=== PATIENT | female | born 1995 | race American Indian/Alaskan Native ===

== ENCOUNTER 2017-05-11 18:07 | Emergency (ER) | payer SELFPAY ==
[2017-05-11 19:32] LABS: Hematocrit 36.5 % (30.3-42.9); Hemoglobin 12.3 gm/dl (10.1-14.3); Mean Corpuscular HGB Conc 34 % (30-34); Mean Corpuscular Hemoglobin 28 pg (28-32); Mean Corpuscular Volume 82 fl (79-97); Platelet Count 301 K/mm3 (140-440); Red Blood Count 4.46 M/mm3 (3.65-5.03)
[2017-05-11 19:35] LABS: Anion Gap 18 mmol/L; BUN/Creatinine Ratio 11.42; Blood Urea Nitrogen 8 mg/dL (7-17); Carbon Dioxide 23 mmol/L (22-30); Chloride 103.2 mmol/L (98-107); Glucose 82 mg/dL (65-100); Potassium 3.9 mmol/L (3.6-5.0); Sodium 140 mmol/L (137-145)
[2017-05-11 21:31] LABS: Bilirubin,Urine NEG (Negative); Blood,Urine LG (Negative); Ketones,Urine TR mg/dL (Negative); Leukocyte Esterase,Urine NEG (Negative); Mucus,Urine FEW /HPF; Nitrite,Urine NEG (Negative); Protein,Urine <15 mg/dL mg/dL (Negative)
--- NOTE | 2017-05-11 23:51 | Ultrasound Report ---
FINAL REPORT PROCEDURE: US OB TRANSVAGINAL TECHNIQUE: Real-time transabdominal and transvaginal sonography of the uterus, placenta, amniotic fluid, adnexa, and fetus was performed with image documentation. Measurements were obtained to determine age/size. M-mode Doppler was used to document heartbeat. CPT 16519 and 17075 HISTORY: , bleeding COMPARISON: No prior studies are available for comparison. FINDINGS: The uterus measures 10.4 x 4.7 x 6 centimeters. The endometrial pattern measures 14 millimeters. There is no evidence of a gestational sac on this study. Both ovaries have normal size. There is a solid-appearing mass on the right ovary measuring 23 millimeters. No fluid in the lower pelvis. The findings may indicate multiple etiologies which includes early and failure. Ectopic is not completely excluded on the basis of this study. Followup examinations including serial beta HCG levels and repeat ultrasound in approximately 14 days would be appropriate. IMPRESSION: Normal uterus and left ovary. Slightly thickened endometrial pattern. Solid small mass on the right ovary measures 23 millimeters and is most consistent with a complicated cyst. The evaluation may indicate multiple etiologies which includes early , failure and ectopic which is not excluded on the basis of this single examination. Followup studies are recommended as described.
--- NOTE | 2017-05-11 23:52 | Ultrasound Report ---
FINAL REPORT PROCEDURE: Obstetrical ultrasound, transabdominal and transvaginal TECHNIQUE: Real-time transabdominal and transvaginal sonography of the uterus, placenta, amniotic fluid, adnexa, and fetus was performed with image documentation. Measurements were obtained to determine age/size. M-mode Doppler was used to document heartbeat. CPT 19653 and 25832 HISTORY: , bleeding COMPARISON: No prior studies are available for comparison. FINDINGS: The uterus measures 10.4 x 4.7 x 6 centimeters. The endometrial pattern measures 14 millimeters. There is no evidence of a gestational sac on this study. Both ovaries have normal size. There is a solid-appearing mass on the right ovary measuring 23 millimeters. No fluid in the lower pelvis. The findings may indicate multiple etiologies which includes early and failure. Ectopic is not completely excluded on the basis of this study. Followup examinations including serial beta HCG levels and repeat ultrasound in approximately 14 days would be appropriate. IMPRESSION: Normal uterus and left ovary. Slightly thickened endometrial pattern. Solid small mass on the right ovary measures 23 millimeters and is most consistent with a complicated cyst. The evaluation may indicate multiple etiologies which includes early , failure and ectopic which is not excluded on the basis of this single examination. Followup studies are recommended as described.
--- NOTE | 2017-05-12 00:13 | Emergency Department Report ---
HPI - General Chief Complaint: Vaginal Bleeding Time Seen by Provider: 05/12/17 00:11 - HPI HPI: Patient came to ED with vaginal bleeding. She is 21 years old states on April 20 she took the morning-after pill, but later was found to be at an outside hospital. She complained of cramping, vaginal bleeding consistent with a menstrual cycle for 3 days. ED Past Medical Hx - Past Medical History Previous Medical History?: No - Social History Smoking Status: Current Some Day Smoker Substance Use Type: Alcohol ED Review of Systems ROS: Stated complaint: 4 WKS PREG/BLEEDING Other details as noted in HPI Comment: All other systems reviewed and negative Gastrointestinal: as per HPI Genitourinary: abnormal menses Physical Exam - Physical Exam Vital Signs: Vital Signs 05/11/17 18:34 Temperature 98.7 F Pulse Rate 80 Respiratory 18 Rate Blood Pressure 148/78 O2 Sat by Pulse 100 Oximetry Physical Exam: GENERAL: The patient is well-developed well-nourished [] HEENT: Normocephalic. Atraumatic. Extraocular motions are intact. Patient has moist mucous membranes. NECK: Supple. No meningitic signs are noted. There is no adenopathy noted. CHEST/LUNGS: Clear to auscultation. There is no respiratory distress noted. HEART/CARDIOVASCULAR: Regular. There is no tachycardia. There is no gallop rub or murmur. ABDOMEN: Abdomen is soft, nontender. Patient has normal bowel sounds. There is no abdominal distention. SKIN: There is no rash. There is no edema. There is no diaphoresis. NEURO: The patient is awake, alert, and oriented. The patient is cooperative. The patient has no focal neurologic deficits. The patient has normal speech. Cranial nerves II through XII grossly intact, no drift. Moves all extremities well MUSCULOSKELETAL: There is no evidence of acute injury. ED Course Vital Signs 05/11/17 18:34 Temperature 98.7 F Pulse Rate 80 Respiratory 18 Rate Blood Pressure 148/78 O2 Sat by Pulse 100 Oximetry - Reevaluation(s) Reevaluation #1: 05/12/17 00:51 Patient advising details about ultrasound and blood work findings. Advised to return to ED in 2 days for recheck of hCG, and ultrasound. Patient does not have an IC DESIGN MANAGER due to lack of insurance. Return to ED if pain returns. I discharged patient did not have any pain, appeared comfortable. ED Medical Decision Making - Lab Data Result diagrams: 05/11/17 19:02 05/11/17 19:02 Critical care attestation.: If time is entered above; I have spent that time in minutes in the direct care of this critically ill patient, excluding procedure time. ED Disposition Clinical Impression: Vaginal bleeding in Disposition: DC-01 TO HOME OR SELFCARE Is pt being admited?: No Does the pt Need Aspirin: No Condition: Stable Referrals: PRIMARY CARE, [Primary Care Provider] - 3-5 Days
[2017-05-12 00:15] VITALS: BP 153/73
== END 2017-05-12 01:43 | disposition home or self-care (01) ==
LOC: ED 18:07
DX: O20.9 Hemorrhage in early pregnancy, unspecified (principal); O99.331 Smoking (tobacco) complicating pregnancy, first trimester; Z3A.01 Less than 8 weeks gestation of pregnancy
CPT/HCPCS: 36415; 76801; 76817; 80048; 81001; 84702; 85027; 86900; 86901

== ENCOUNTER 2018-03-15 09:37 | Emergency (ER) | payer MEDICAID ==
[2018-03-15 09:45] VITALS: BP 139/75
--- NOTE | 2018-03-15 10:20 | Emergency Department Report ---
ED Female HPI - General Chief complaint: Abdominal Pain Stated complaint: ABD PAIN/DIARRHEA/DISCHARGE/NAUSEA Time Seen by Provider: 03/15/18 10:11 Source: patient Mode of arrival: Ambulatory Limitations: No Limitations - History of Present Illness Initial comments: Ms Arrieta is a 22 year-old woman without PMH who presents with abdominal pain, dysuria, vaginal discharge. 1 week. No back pain. Lower abdominal pain without radiation. currently on her cycle. No fever. No cough. Endorses diarrhea earlier this week. Some nausea and vomiting. No vomiting today. No other complaints. MD Complaint: vaginal discharge - Related Data Allergies Allergy/AdvReac Type Severity Reaction Status Date / Time No Known Allergies Allergy Unverified 05/11/17 18:40 ED Review of Systems ROS: Stated complaint: ABD PAIN/DIARRHEA/DISCHARGE/NAUSEA Other details as noted in HPI Comment: All other systems reviewed and negative ED Past Medical Hx - Past Medical History Previous Medical History?: No - Surgical History Past Surgical History?: Yes Additional Surgical History: ECTOPIC PREGNANY- LEFT FALLOPIAN TUBE REMOVED. C- SECTION X 1 - Social History Smoking Status: Never Smoker Substance Use Type: Alcohol, Marijuana ED Physical Exam - General Limitations: No Limitations General appearance: alert, in no apparent distress - Head Head exam: Present: atraumatic, normocephalic - Eye Eye exam: Present: normal appearance - ENT ENT exam: Present: normal exam, mucous membranes dry - Cardiovascular Cardiovascular Exam: Present: regular rate, normal rhythm - GI/Abdominal GI/Abdominal exam: Present: soft, tenderness, other (mild suprapubic ttp). Absent: distended, guarding, rebound - External exam: Present: normal external exam. Absent: erythema, swelling, lesions Speculum exam: Present: normal speculum exam, vaginal discharge. Absent: erythema, cervical discharge, vaginal bleeding, foreign body Bi-manual exam: Present: normal bi-manual exam. Absent: cervical motion tendernes, adnexal tenderness, adnexal mass - Back Exam Back exam: Present: normal inspection. Absent: tenderness, CVA tenderness (R), CVA tenderness (L) - Neurological Exam Neurological exam: Present: alert, altered, normal gait - Psychiatric Psychiatric exam: Present: normal affect, normal mood - Skin Skin exam: Present: warm, dry, intact ED Course Vital Signs 03/15/18 03/15/18 09:41 10:14 Temperature 98.9 F Pulse Rate 81 Respiratory 16 16 Rate Blood Pressure 139/75 O2 Sat by Pulse 100 Oximetry ED Medical Decision Making - Lab Data Lab Results 03/15/18 Range/Units Unknown Urine Color Yellow (Yellow) Urine Turbidity Clear (Clear) Urine pH 5.0 (5.0-7.0) Ur Specific [place] 1.017 (1.003-1.030) Urine Protein <15 mg/dl (Negative) mg/dL Urine Glucose (UA) Neg (Negative) mg/dL Urine Ketones Neg (Negative) mg/dL Urine Blood Neg (Negative) Urine Nitrite Neg (Negative) Urine Bilirubin Neg (Negative) Urine Urobilinogen < 2.0 (<2.0) mg/dL Ur Leukocyte Esterase Neg (Negative) Urine WBC (Auto) 1.0 (0.0-6.0) /HPF Urine RBC (Auto) 4.0 (0.0-6.0) /HPF U Epithel Cells (Auto) 2.0 (0-13.0) /HPF Urine Bacteria (Auto) 1+ (Negative) /HPF Urine Mucus Few /HPF - Radiology Data Radiology results: report reviewed IMPRESSION: An early intrauterine gestational sac is identified but no pole or heart tones are identified at this time. This probably represents a very early normal . Followup is recommended. 4.9 cm right ovarian cyst. - Medical Decision Making ms Arrieta is a 22 year-old woman who presents with abdominal pain, cramping. Lower abdominal cramping. Also with diarrhea. At this point, she also alerts me to a positive home test. ordering serum HCG instead of urine. Pelvic exam with scant white vaginal discharge. No adnexal ttp. Suspect her symptoms are from diarrhea and cramping, BV, UTI or . UA clean. Wet prep positive for clue cells. Reported hx of unilateral fallopian tube removal. HCG positive. Quant pending. Hx of ectopic. TVUS pending. TVUS shows early IUP. HCG 1999. OB f/u. Flagyl 500mg BID x 7 days for BV. Category B in . DC to home. Given care instructions, return precautions. Critical care attestation.: If time is entered above; I have spent that time in minutes in the direct care of this critically ill patient, excluding procedure time. ED Disposition Clinical Impression: Bacterial vaginosis Qualifiers: Weeks of gestation: less than 8 weeks Qualified Code(s): Z3A.01 - Less than 8 weeks gestation of Disposition: DC-01 TO HOME OR SELFCARE Is pt being admited?: No Condition: Stable Instructions: Abdominal Pain (ED), Bacterial Vaginosis (ED) Referrals: FAISAL DUMONT MD [Staff Physician] - 3-5 Days (Call for follow-up appointment ) Forms: STI Treatment and Prevention
[2018-03-15 10:46] LABS: Bacteria,Urine 1+ /HPF (Negative); Bilirubin,Urine NEG (Negative); Blood,Urine NEG (Negative); Color,Urine Yellow (Yellow); Mucus,Urine FEW /HPF; Protein,Urine <15 mg/dL mg/dL (Negative); Urobilinogen,Urine < 2.0 mg/dL (<2.0)
--- NOTE | 2018-03-15 13:34 | Ultrasound Report ---
ULTRASOUND OB LESS THAN 14 WEEKS FETUS ULTRASOUND OB TRANSVAGINAL HISTORY: Abdominal pain during . COMPARISON: None. TECHNIQUE: Transabdominal and transvaginal ultrasound with color doppler interrogation. FINDINGS: Uterus: The uterus measures 10 x 6 x 6 cm. No uterine fibroids are identified. Normal cervix. Endometrium: A tiny gestational sac containing a tiny yolk sac is identified. Average gestational sac diameter measures 4.6 mm which correlates with a 5 week, 2 day . No heart tones or pole could be demonstrated. No subchorionic hemorrhage. Right ovary: 5.4 x 5.1 x 4.7 cm. A 4.9 cm unilocular cyst is identified. Left ovary: 4.4 x 1.9 x 3.4 cm. No focal abnormality. No pelvic fluid or mass is identified. Normal color doppler interrogation. IMPRESSION: An early intrauterine gestational sac is identified but no pole or heart tones are identified at this time. This probably represents a very early normal . Followup is recommended. 4.9 cm right ovarian cyst.
== END 2018-03-15 14:00 | disposition home or self-care (01) ==
LOC: ED 09:37
DX: O23.591 Infection of other part of genital tract in pregnancy, first trimester (principal); N76.0 Acute vaginitis; B96.89 Other specified bacterial agents as the cause of diseases classified elsewhere; F12.90 Cannabis use, unspecified, uncomplicated; Z3A.01 Less than 8 weeks gestation of pregnancy
CPT/HCPCS: 36415; 76801; 76817; 81001; 84702; 84703; 87210; 87591

== ENCOUNTER 2018-04-06 22:10 | Inpatient (IN) | payer MEDICAID ==
[2018-04-06] MEDS ORDERED: NACL 0.9% 1000 ML 1,000 ML IV ONE (23:16)
[2018-04-06 23:38] LABS: Basophils % (Auto) 0.3 % (0.0-1.8); Eosinophils % (Auto) 0.1 % (0.0-4.3); Hematocrit 40.6 % (30.3-42.9); Hemoglobin 13.1 gm/dl (10.1-14.3); Lymphocytes # (Auto) 2.2 K/mm3 (1.2-5.4); Lymphocytes % (Auto) 17.9 % (13.4-35.0); Mean Corpuscular HGB Conc 32 % (30-34); Mean Corpuscular Hemoglobin 27 pg (28-32); Mean Corpuscular Volume 83 fl (79-97); Monocytes # (Auto) 0.9 K/mm3 (0.0-0.8); Monocytes % (Auto) 7.5 % (0.0-7.3); Platelet Count 324 K/mm3 (140-440); Red Blood Count 4.88 M/mm3 (3.65-5.03); Red Cell Distribution Width 13.4 % (13.2-15.2)
[2018-04-06 23:48] LABS: Alanine Aminotransferase 6 units/L (7-56); Albumin 4.3 g/dL (3.9-5); BUN/Creatinine Ratio 8; Blood Urea Nitrogen 4 mg/dL (7-17); Calcium 9.4 mg/dL (8.4-10.2); Hemolysis Index 2
[2018-04-07 01:28] LABS: Bacteria,Urine 2+ /HPF (Negative); Bilirubin,Urine NEG (Negative); Blood,Urine NEG (Negative); Color,Urine Amber (Yellow); Mucus,Urine 3+ /HPF
[2018-04-07] MEDS ORDERED: SUBLIMAZE IV ONE (01:42)
[2018-04-07] MEDS ORDERED: ZOFRAN IV ONE (01:42)
[2018-04-07] MEDS ORDERED: PEPCID IV ONE (01:42)
--- NOTE | 2018-04-07 01:43 | Emergency Department Report ---
ED Female HPI - General Chief complaint: Abdominal Pain Stated complaint: ABD PAIN Time Seen by Provider: 04/07/18 01:18 Source: patient, family, EMS (ems notes not available at time of chart dictation), RN notes reviewed, old records reviewed Mode of arrival: Ambulatory Limitations: No Limitations - History of Present Illness Initial comments: Pvt. GLOBAL LEAD physician: From [facility] Past medical history: Hyperemesis gravidarum, tubal ectopic status post appendectomy, section, 3, para 1. This is a 22-year-old female, unknown to this provider previously, presents to the ER with a complaint of nausea and vomiting, unintentional weight loss, malaise, fatigue, abdominal cramping with nausea and vomiting, and occasional blood-tinged emesis after nausea and vomiting. Reports symptoms are similar to prior episode of hyperemesis. Her symptoms are constant, worsened with attempting to eat or drink. They decrease with rest. -: Gradual Location: suprapubic Radiation: non-radiating Severity: moderate Quality: cramping, other Consistency: constant Improves with: other Worsens with: other Are you Now?: Yes Associated Symptoms: abdominal pain, nausea/vomiting, loss of appetite, weakness. denies: vaginal discharge, vaginal bleeding, fever/chills, headaches , dysuria, hematuria, rash, seizure, shortness of breath, syncope - Related Data Sexually active: Yes Previous Rx's Medication Instructions Recorded Last Taken Type metroNIDAZOLE [Metronidazole] 500 mg PO BID 7 Days #14 tablet 03/15/18 Unknown Rx Allergies Allergy/AdvReac Type Severity Reaction Status Date / Time No Known Allergies Allergy Unverified 05/11/17 18:40 ED Review of Systems ROS: Stated complaint: ABD PAIN Other details as noted in HPI Constitutional: weakness Eyes: denies: eye discharge ENT: denies: epistaxis Respiratory: denies: cough Cardiovascular: denies: chest pain Gastrointestinal: abdominal pain, nausea, vomiting Genitourinary: denies: dysuria Musculoskeletal: arthralgia, myalgia Skin: denies: lesions Neurological: weakness Psychiatric: anxiety ED Past Medical Hx - Past Medical History Previous Medical History?: No - Surgical History Past Surgical History?: Yes Additional Surgical History: ECTOPIC PREGNANY- LEFT FALLOPIAN TUBE REMOVED. C- SECTION X 1 - Social History Smoking Status: Former Smoker Substance Use Type: None - Medications Home Medications: Home Medications Medication Instructions Recorded Confirmed Last Taken Type metroNIDAZOLE [Metronidazole] 500 mg PO BID 7 Days #14 tablet 03/15/18 Unknown Rx ED Physical Exam - General Limitations: No Limitations General appearance: alert, in distress - Head Head exam: Present: atraumatic, normocephalic - Eye Eye exam: Present: normal appearance, EOMI. Absent: nystagmus - ENT ENT exam: Present: normal orophraynx, mucous membranes dry, normal external ear exam - Neck Neck exam: Present: normal inspection, full ROM. Absent: tenderness, meningismus - Respiratory Respiratory exam: Present: normal lung sounds bilaterally. Absent: respiratory distress - Cardiovascular Cardiovascular Exam: Present: regular rate, normal rhythm, normal heart sounds. Absent: bradycardia, tachycardia, irregular rhythm, systolic murmur, diastolic murmur, rubs, gallop - GI/Abdominal GI/Abdominal exam: Present: soft. Absent: distended, tenderness, guarding, rebound, rigid, pulsatile mass - Extremities Exam Extremities exam: Present: normal inspection, full ROM, normal capillary refill , other (2+ pulses noted in the bilateral upper, lower extremities. Compartments soft. No long bony tenderness. The pelvis is stable.). Absent: pedal edema, joint swelling, calf tenderness - Back Exam Back exam: Present: normal inspection, full ROM. Absent: paraspinal tenderness , vertebral tenderness - Neurological Exam Neurological exam: Present: alert, CN II-XII intact, other (Extraocular movements intact. Tongue midline. No facial droop. Facial sensation intact to light touch in the V1, V2, V3 distribution bilaterally. 5 and 5 strength in 4 extremities.. Sensation is intact to light touch in 4 extremities.). Absent : motor sensory deficit - Psychiatric Psychiatric exam: Present: anxious - Skin Skin exam: Present: warm, dry, intact, normal color. Absent: rash ED Course Vital Signs 04/06/18 22:24 Temperature 98.3 F Pulse Rate 75 Respiratory 16 Rate Blood Pressure 114/70 O2 Sat by Pulse 99 Oximetry - Reevaluation(s) Reevaluation #1: 04/07/18 05:39 Print Report Referring Physician: KRYSTIN LEYVA Patient Name: LES ALLEN Date of : 1995 Sex: Female Report Date: 2018-04-07 Report Status: Finalized Findings [facility] [address] [place] [address] Ultrasound Report Signed Patient: LES ALLEN MR#: [id number] : 1995 Acct:[id number] Age/Sex: 22 / F ADM Date: 04/06/18 Loc: ED Attending Dr: Ordering Physician: KRYSTIN LEYVA MD Date of Service: 04/07/18 Procedure(s): US OB transvaginal Accession Number(s): [id number] cc: KRYSTIN LEYVA MD FINAL REPORT EXAM: US OB TRANSVAGINAL HISTORY: +hcg abd pain TECHNIQUE: Real-time sonography was performed of the gravid uterus endovaginally and images are submitted for interpretation. PRIORS: None. FINDINGS: The uterus appears normal and has a grossly normal appearing gestational sac. There is a small subchorionic hematoma measuring 1.3 x 1.4 x 0.7 cm. There is a normal appearing pole measuring 2.11 cm centimeters for an estimated gestational age of 8 weeks 5 days. The heart is beating at a rate of 185 beats per minute. Both ovaries are visualized and appear normal. The right ovary has a 2.5 cm corpus luteal cyst. The right ovary measures 4.7 x 2.6 x 2.9 cm and the left measures 3.6 x 2.1 x 2.2 cm IMPRESSION: 1. Single live intrauterine gestation, estimated gestational age 8 weeks 5 days for an estimated date confinement of 11/12/2018. 2. Small subchorionic hematoma Transcribed By: ML Dictated By: ALMA ROSA EARLY MD Electronically Authenticated By: ALMA ROSA EARLY MD Signed Date/Time: 04/07/18 0244 ED Medical Decision Making - Lab Data Result diagrams: 04/06/18 23:19 04/06/18 23:19 Vital Signs 04/06/18 22:24 Temperature 98.3 F Pulse Rate 75 Respiratory 16 Rate Blood Pressure 114/70 O2 Sat by Pulse 99 Oximetry Lab Results 04/06/18 04/06/18 04/06/18 Range/Units 23:19 23:19 23:19 WBC 12.2 H (4.5-11.0) K/mm3 RBC 4.88 (3.65-5.03) M/mm3 Hgb 13.1 (10.1-14.3) gm/dl Hct 40.6 (30.3-42.9) % MCV 83 (79-97) fl MCH 27 L (28-32) pg MCHC 32 (30-34) % RDW 13.4 (13.2-15.2) % Plt Count 324 (140-440) K/mm3 Lymph % (Auto) 17.9 (13.4-35.0) % [place] % (Auto) 7.5 H (0.0-7.3) % Eos % (Auto) 0.1 (0.0-4.3) % Baso % (Auto) 0.3 (0.0-1.8) % Lymph # 2.2 (1.2-5.4) K/mm3 [place] # 0.9 H (0.0-0.8) K/mm3 Eos # 0.0 (0.0-0.4) K/mm3 Baso # 0.0 (0.0-0.1) K/mm3 Seg Neutrophils % 74.2 H (40.0-70.0) % Seg Neutrophils # 9.0 H (1.8-7.7) K/mm3 Sodium 136 L (137-145) mmol/L Potassium 3.8 (3.6-5.0) mmol/L Chloride 99.9 (98-107) mmol/L Carbon Dioxide 23 (22-30) mmol/L Anion Gap 17 mmol/L BUN 4 L (7-17) mg/dL Creatinine 0.5 L (0.7-1.2) mg/dL Estimated GFR > 60 ml/min BUN/Creatinine Ratio 8 % Glucose 94 (65-100) mg/dL Calcium 9.4 (8.4-10.2) mg/dL Total Bilirubin 0.40 (0.1-1.2) mg/dL AST 14 (5-40) units/L ALT 6 L (7-56) units/L Alkaline Phosphatase 64 (35-129) units/L Total Protein 7.5 (6.3-8.2) g/dL Albumin 4.3 (3.9-5) g/dL Albumin/Globulin Ratio 1.3 % HCG, Quant 71925 H (0-4) mIU/mL Urine Color (Yellow) Urine Turbidity (Clear) Urine pH (5.0-7.0) Ur Specific [place] (1.003-1.030) Urine Protein (Negative) mg/dL Urine Glucose (UA) (Negative) mg/dL Urine Ketones (Negative) mg/dL Urine Blood (Negative) Urine Nitrite (Negative) Urine Bilirubin (Negative) Urine Urobilinogen (<2.0) mg/dL Ur Leukocyte Esterase (Negative) Urine WBC (Auto) (0.0-6.0) /HPF Urine RBC (Auto) (0.0-6.0) /HPF U Epithel Cells (Auto) (0-13.0) /HPF Urine Bacteria (Auto) (Negative) /HPF Urine Mucus /HPF 04/06/18 Range/Units Unknown WBC (4.5-11.0) K/mm3 RBC (3.65-5.03) M/mm3 Hgb (10.1-14.3) gm/dl Hct (30.3-42.9) % MCV (79-97) fl MCH (28-32) pg MCHC (30-34) % RDW (13.2-15.2) % Plt Count (140-440) K/mm3 Lymph % (Auto) (13.4-35.0) % [place] % (Auto) (0.0-7.3) % Eos % (Auto) (0.0-4.3) % Baso % (Auto) (0.0-1.8) % Lymph # (1.2-5.4) K/mm3 [place] # (0.0-0.8) K/mm3 Eos # (0.0-0.4) K/mm3 Baso # (0.0-0.1) K/mm3 Seg Neutrophils % (40.0-70.0) % Seg Neutrophils # (1.8-7.7) K/mm3 Sodium (137-145) mmol/L Potassium (3.6-5.0) mmol/L Chloride (98-107) mmol/L Carbon Dioxide (22-30) mmol/L Anion Gap mmol/L BUN (7-17) mg/dL Creatinine (0.7-1.2) mg/dL Estimated GFR ml/min BUN/Creatinine Ratio % Glucose (65-100) mg/dL Calcium (8.4-10.2) mg/dL Total Bilirubin (0.1-1.2) mg/dL AST (5-40) units/L ALT (7-56) units/L Alkaline Phosphatase (35-129) units/L Total Protein (6.3-8.2) g/dL Albumin (3.9-5) g/dL Albumin/Globulin Ratio % HCG, Quant (0-4) mIU/mL Urine Color [place] (Yellow) Urine Turbidity Hazy (Clear) Urine pH 5.0 (5.0-7.0) Ur Specific [place] 1.024 (1.003-1.030) Urine Protein 30 mg/dl (Negative) mg/dL Urine Glucose (UA) Neg (Negative) mg/dL Urine Ketones 80 (Negative) mg/dL Urine Blood Neg (Negative) Urine Nitrite Neg (Negative) Urine Bilirubin Neg (Negative) Urine Urobilinogen 4.0 (<2.0) mg/dL Ur Leukocyte Esterase Tr (Negative) Urine WBC (Auto) 10.0 H (0.0-6.0) /HPF Urine RBC (Auto) 2.0 (0.0-6.0) /HPF U Epithel Cells (Auto) 12.0 (0-13.0) /HPF Urine Bacteria (Auto) 2+ (Negative) /HPF Urine Mucus 3+ /HPF - Radiology Data Radiology results: pending - Medical Decision Making Differential diagnosis, including but not limited to: Hyperemesis gravidarum, Mis-Kaiser tear, dehydration, nausea and vomiting of Assessment and plan: 22-year-old female with probable nausea and vomiting of versus hyperemesis. I clinically favor the latter as patient endorses unintentional weight loss. Blood-tinged emesis likely secondary to Mis-Kaiser tear. She is afebrile with reassuring vital signs and a soft benign abdomen. Obstetrics ultrasound reconfirms intrauterine . She will be given Zofran and D5 half normal. Case is presented to Dr. Jake Maldonado, obstetrics on-call covering for the patient's GLOBAL LEAD physician, patient accepted to mother-baby for intractable nausea and vomiting of . Critical care attestation.: If time is entered above; I have spent that time in minutes in the direct care of this critically ill patient, excluding procedure time. ED Disposition Clinical Impression: Hyperemesis gravidarum Disposition: OP ADMIT IP TO THIS HOSP Is pt being admited?: Yes Condition: Good Instructions: Abdominal Pain (ED) Referrals: PRIMARY CARE, [Primary Care Provider] - 3-5 Days
[2018-04-07] MEDS ORDERED: D5/0.45NS 1,000 ML IV SCH (02:00)
[2018-04-07 02:38] LABS: Lipase 19 units/L (13-60)
[2018-04-07] MEDS: REGLAN IV SCH ×4 (02:41→20:20)
[2018-04-07] MEDS: PHENERGAN PR SCH ×3 (02:42→23:38)
--- NOTE | 2018-04-07 02:49 | Ultrasound Report ---
FINAL REPORT EXAM: US OB TRANSVAGINAL HISTORY: +hcg abd pain TECHNIQUE: Real-time sonography was performed of the gravid uterus endovaginally and images are submitted for interpretation. PRIORS: None. FINDINGS: The uterus appears normal and has a grossly normal appearing gestational sac. There is a small subchorionic hematoma measuring 1.3 x 1.4 x 0.7 cm. There is a normal appearing pole measuring 2.11 cm centimeters for an estimated gestational age of 8 weeks 5 days. The heart is beating at a rate of 185 beats per minute. Both ovaries are visualized and appear normal. The right ovary has a 2.5 cm corpus luteal cyst. The right ovary measures 4.7 x 2.6 x 2.9 cm and the left measures 3.6 x 2.1 x 2.2 cm IMPRESSION: 1. Single live intrauterine gestation, estimated gestational age 8 weeks 5 days for an estimated date confinement of 11/12/2018. 2. Small subchorionic hematoma
--- NOTE | 2018-04-07 02:51 | Ultrasound Report ---
FINAL REPORT EXAM: US OB < = 14 WEEKS FETUS HISTORY: +hcg abd pain TECHNIQUE: Real-time sonography was performed of the gravid uterus transabdominally and endovaginally and images are submitted for interpretation. PRIORS: None. FINDINGS: The uterus appears normal and has a grossly normal appearing gestational sac. There is a small subchorionic hematoma measuring 1.3 x 1.4 x 0.7 cm. There is a normal appearing pole measuring 2.11 cm centimeters for an estimated gestational age of 8 weeks 5 days. The heart is beating at a rate of 185 beats per minute. Both ovaries are visualized and appear normal. The right ovary has a 2.5 cm corpus luteal cyst. The right ovary measures 4.7 x 2.6 x 2.9 cm and the left measures 3.6 x 2.1 x 2.2 cm. IMPRESSION: 1. Single live intrauterine gestation, estimated gestational age 8 weeks 5 days for an estimated date confinement of 11/12/2018. 2. Small subchorionic hematoma
[2018-04-07 02:54] LABS: Hepatitis A Antibody IgM Non-Reactive (NonReactive); Hepatitis B Core IgM Non-Reactive (NonReactive); Hepatitis B Surface Antigen Non-Reactive (Negative); Hepatitis C Virus Antibody Non-Reactive (NonReactive)
[2018-04-07] MEDS: D5LR 1,000 ML IV SCH ×5 (03:43→20:20)
[2018-04-07] MEDS ORDERED: ZOFRAN ONE (06:36)
[2018-04-07] MEDS ORDERED: D5LR 1,000 ML IV ONE (06:36)
[2018-04-07] MEDS: ZOFRAN IV PRN ×2 (06:44→18:13)
[2018-04-07] MEDS ORDERED: PERCOCET 5/325 PO PRN (08:17)
[2018-04-07] MEDS: PRENATAL VITAMIN PO SCH (10:00)
--- NOTE | 2018-04-07 13:25 | History and Physical Report ---
History of Present Illness Date of examination: 04/07/18 Date of admission: 04/07/18 01:59 Chief complaint: Nausea and vomiting History of present illness: A 22-year-old at 8+5 weeks who presents with retractable nausea and vomiting. The patient reports a history of hyperemesis with her previous . The patient states having blood in her emesis recently. Past History Past Medical History: no pertinent history, other (ectopic ) Past Surgical History: other (laparoscopy/salpingectomy) - Obstetrical History : 3 Para: 1 Hx # Term Pregnancies: 1 Number of Pregnancies: 0 Spontaneous Abortions: 1 Induced : 0 Number of Living Children: 1 Medications and Allergies Allergies Allergy/AdvReac Type Severity Reaction Status Date / Time No Known Allergies Allergy Unverified 05/11/17 18:40 Home Medications Medication Instructions Recorded Confirmed Last Taken Type metroNIDAZOLE [Metronidazole] 500 mg PO BID 7 Days #14 tablet 03/15/18 04/07/18 Unknown Rx Active Meds: Active Medications Hydrocortisone Sodium Succinate (Solu-Cortef) 100 mg IV Q8HR RAÚL Dextrose/Lactated Ringer's (D5lr) 1,000 mls @ 500 mls/hr IV DIRECT RAÚL Stop: 04/08/18 03:59 Last Admin: 04/07/18 03:44 Dose: 500 mls/hr Dextrose/Lactated Ringer's (D5lr) 1,000 mls @ 150 mls/hr IV DIRECT RAÚL Last Admin: 04/07/18 06:44 Dose: 150 mls/hr Metoclopramide HCl (Reglan) 10 mg IV Q6H RAÚL Last Admin: 04/07/18 08:35 Dose: 10 mg Multivitamins/Iron/Calcium ( Vitamin) 1 each PO QDAY RAÚL Ondansetron HCl (Zofran) 4 mg IV Q6H PRN PRN Reason: N/V unrelieved by Reglan Last Admin: 04/07/18 06:44 Dose: 4 mg Oxycodone/Acetaminophen (Percocet 5/325) 1 tab PO Q6H PRN PRN Reason: Pain, Moderate (4-6) Last Admin: 04/07/18 08:35 Dose: 1 tab Promethazine HCl (Phenergan) 25 mg OK Q6H RAÚL Last Admin: 07/27/18 02:42 Dose: Not Given Review of Systems Constitutional: weight loss Gastrointestinal: abdominal pain, nausea, vomiting - Vital Signs Vital signs: Vital Signs Temp Pulse Resp BP Pulse Ox 98.3 F 75 16 114/70 99 04/06/18 22:24 04/06/18 22:24 04/06/18 22:24 04/06/18 22:24 04/06/18 22:24 Temp Pulse Resp BP Pulse Ox 98.3 F 82 20 120/74 100 04/06/18 22:24 04/07/18 06:00 04/07/18 08:35 04/07/18 06:00 04/07/18 06:00 - Physical Exam Abdomen: Positive: normal appearance, soft Results Result Diagrams: 04/06/18 23:19 04/06/18 23:19 Abnormal lab results 04/06/18 04/06/18 04/06/18 Range/Units 23:19 23:19 23:19 WBC 12.2 H (4.5-11.0) K/mm3 MCH 27 L (28-32) pg [place] % (Auto) 7.5 H (0.0-7.3) % [place] # 0.9 H (0.0-0.8) K/mm3 Seg Neutrophils % 74.2 H (40.0-70.0) % Seg Neutrophils # 9.0 H (1.8-7.7) K/mm3 Sodium 136 L (137-145) mmol/L BUN 4 L (7-17) mg/dL Creatinine 0.5 L (0.7-1.2) mg/dL ALT 6 L (7-56) units/L TSH (0.270-4.200) mlU/mL HCG, Quant 59235 H (0-4) mIU/mL Urine WBC (Auto) (0.0-6.0) /HPF 04/06/18 04/07/18 Range/Units Unknown 02:10 WBC (4.5-11.0) K/mm3 MCH (28-32) pg [place] % (Auto) (0.0-7.3) % [place] # (0.0-0.8) K/mm3 Seg Neutrophils % (40.0-70.0) % Seg Neutrophils # (1.8-7.7) K/mm3 Sodium (137-145) mmol/L BUN (7-17) mg/dL Creatinine (0.7-1.2) mg/dL ALT (7-56) units/L TSH 0.177 L (0.270-4.200) mlU/mL HCG, Quant (0-4) mIU/mL Urine WBC (Auto) 10.0 H (0.0-6.0) /HPF All other labs normal. Assessment and Plan - Patient Problems (1) Hyperemesis gravidarum Current Visit: Yes Status: Acute Plan to address problem: IV hydration and anti-emetic therapy
[2018-04-08] MEDS: PHENERGAN PR SCH (02:00)
[2018-04-08] MEDS: REGLAN IV SCH ×3 (02:02→18:18)
[2018-04-08] MEDS: D5LR 1,000 ML IV SCH ×3 (02:02→20:12)
[2018-04-08] MEDS: PRENATAL VITAMIN PO SCH (10:02)
--- NOTE | 2018-04-08 12:57 | Progress Note ---
Assessment and Plan - Patient Problems (1) Hyperemesis gravidarum Current Visit: Yes Status: Acute Plan to address problem: Patient demonstrating clinical improvement Advance diet as tolerated Subjective - Subjective Date of service: 04/08/18 Interval history: The patient denies any vomiting today. She is tolerating her clear diet without difficulty. Patient reports: no new complaints Objective - Vital Signs Vital Signs: Vital Signs - 12hr 04/08/18 04/08/18 04/08/18 08:00 08:08 08:55 Temperature 98.7 F Pulse Rate 76 Respiratory 16 18 16 Rate Blood Pressure 111/56 [Left] O2 Sat by Pulse 99 Oximetry - Labs Labs: Abnormal Labs 04/06/18 04/06/18 04/06/18 23:19 23:19 23:19 WBC 12.2 H MCH 27 L [place] % (Auto) 7.5 H [place] # 0.9 H Seg Neutrophils % 74.2 H Seg Neutrophils # 9.0 H Sodium 136 L BUN 4 L Creatinine 0.5 L ALT 6 L TSH HCG, Quant 33552 H Urine WBC (Auto) 04/06/18 04/07/18 Unknown 02:10 WBC MCH [place] % (Auto) [place] # Seg Neutrophils % Seg Neutrophils # Sodium BUN Creatinine ALT TSH 0.177 L HCG, Quant Urine WBC (Auto) 10.0 H Laboratory Results - last 24 hr 04/08/18 02:00 Urine Ketones Neg
[2018-04-08] MEDS: ZOFRAN IV PRN (20:13)
[2018-04-09] MEDS: REGLAN IV SCH ×3 (00:37→15:49)
[2018-04-09] MEDS: D5LR 1,000 ML IV SCH (03:30)
[2018-04-09] MEDS: ZOFRAN IV PRN (09:04)
[2018-04-09] MEDS: PHENERGAN PR SCH ×2 (09:05→15:49)
[2018-04-09 12:39] VITALS: BP 123/61
--- NOTE | 2018-04-09 15:07 | Progress Note ---
Assessment and Plan - Patient Problems (1) Hyperemesis gravidarum Current Visit: Yes Status: Acute Plan to address problem: doing better discharge home Subjective - Subjective Date of service: 04/09/18 Interval history: The patient has had only one episode of emesis. Reports feeling better Patient reports: no new complaints Objective - Vital Signs Vital Signs: Vital Signs - 12hr 04/09/18 04/09/18 04/09/18 04:10 08:00 08:50 Temperature 98.2 F 98.7 F 98.7 F Pulse Rate 72 81 72 Respiratory 20 18 18 Rate Blood Pressure 128/60 Blood Pressure 114/59 128/60 [Left] O2 Sat by Pulse 98 100 99 Oximetry 04/09/18 12:07 Temperature 98.6 F Pulse Rate 71 Respiratory 18 Rate Blood Pressure 123/61 Blood Pressure [Left] O2 Sat by Pulse 98 Oximetry - Labs Labs: Abnormal Labs 04/06/18 04/06/18 04/06/18 23:19 23:19 23:19 WBC 12.2 H MCH 27 L [place] % (Auto) 7.5 H [place] # 0.9 H Seg Neutrophils % 74.2 H Seg Neutrophils # 9.0 H Sodium 136 L BUN 4 L Creatinine 0.5 L ALT 6 L TSH HCG, Quant 78626 H Urine WBC (Auto) 04/06/18 04/07/18 Unknown 02:10 WBC MCH [place] % (Auto) [place] # Seg Neutrophils % Seg Neutrophils # Sodium BUN Creatinine ALT TSH 0.177 L HCG, Quant Urine WBC (Auto) 10.0 H Laboratory Results - last 24 hr 04/08/18 04/09/18 14:15 12:10 Urine Ketones Neg Neg
--- NOTE | 2018-04-09 15:09 | Discharge Summary ---
Providers - Providers Date of Admission: 04/07/18 01:59 Date of discharge: 04/09/18 Attending physician: RAMAN HADDAD 04/07/18 01:50 Consult to Physician [CONS] Urgent Comment: Consulting Provider: RAMNA HADDAD Physician Instructions: Reason For Exam: hyperemesis 04/07/18 02:00 Consult to Dietitian/Nutrition [CONS] Routine Physician Instructions: Reason For Exam: Reason for Consult: hyper grav Reason for Consult: hyperemesis Primary care physician: [employer] Hospitalization Reason for admission: other (hyperemesis) Procedure: other (IV hydration and anti-emetic therapy) Discharge diagnosis: other (Hyperemesis gravidarum) Hospital course: Patient admitted for nausea and vomiting in the first trimester. She received IV hydration and anti-emetic therapy with improvement in symptoms. Condition at discharge: Good Disposition: DC-01 TO HOME OR SELFCARE - Discharge Diagnoses (1) Hyperemesis gravidarum Status: Acute Plan - Discharge Medications Prescriptions: Doxylamine Succinate/Vit B6 [Alison Blackmon 10-10 mg Tablet] 2 each PO QHS #60 tablet. Ondansetron [Zofran ODT TAB] 8 mg PO Q12HR PRN #30 tab.rapdis PRN Reason: Vomiting - Provider Discharge Summary Activity: routine Diet: routine Instructions: routine Additional instructions: [] Smoking cessation referral if applicable(refer to patient education folder for contact #) [] Refer to [facility] Booklet Call your doctor immediately for: * Fever > 100.5 * Heavy vaginal bleeding ( >1 pad per hour) * Severe persistent headache * Shortness of breath * Reddened, hot, painful area to leg or breast * keep routine OB visit - Follow up plan
== END 2018-04-09 16:45 | disposition home or self-care (01) | DRG 781 ==
LOC: ED 22:10 → OB 04-07 01:59
PROVIDERS: ADMIT Obstetrics & Gynecology; ATTEND Obstetrics & Gynecology
DX: O21.0 Mild hyperemesis gravidarum (principal); O99.341 Other mental disorders complicating pregnancy, first trimester; F41.9 Anxiety disorder, unspecified; Z3A.08 8 weeks gestation of pregnancy; Z79.899 Other long term (current) drug therapy; Z90.49 Acquired absence of other specified parts of digestive tract
CPT/HCPCS: 36415; 76801; 76817; 80053; 80074; 81001; 82010; 82150; 83690; 84443; 84702; 85025; 87086; 96365; 96375; J1720; J2405; J2765; J3010; J7030; J7121